=== PATIENT | female | born 1975 | race Caucasian/White ===

== ENCOUNTER 2016-11-18 12:14 | Day surgery (SDCO) | payer OTHER ==
--- NOTE | 2016-11-18 19:55 | NUR ---
DR SINGLETARY MADE AWARE OF PT HEMOGLOBIN OF 11 @ 4:55 RECIEVED ORDERS TO DISCHARGE PT - REVIEWED INFORMATION PT AT THIS TIME STATES UNDERSTANDING - STATED SHE HAD TO CALL HER BROTHER FOR A RIDE TOLD HER TO CALL OUT WHEN HER RIDE WAS HER @ 1947 PT CALLED AND STATED SHE DID NOT HAVE A RIDE AND ASKED IF A CALL COULD BE PLACED TO DR STONER INQUIRING ABOUT STAYING THE NIGHT - DR STONER STATED PT DID NOT MEET INPATIENT CRITERA AND HER FAMILY WAS TOLD THE PT WOULD BE ABLE TO GO BETWEEN 4:30 AND 5 MEDICAL FEE CLERK SPOKE WITH PT AND MADE HER AWARE OF THIS PT COULD EITHER FIND ANOTHER RIDE OR WAIT IN ER WAITING ROOM FOR HER RIDE
== END 2016-11-18 22:29 | disposition home or self-care (01) ==
LOC: FMS 12:14
PROVIDERS: ADMIT Obstetrics & Gynecology
DX: N99.820 Postprocedural hemorrhage of a genitourinary system organ or structure following a genitourinary system procedure (principal); D06.9 Carcinoma in situ of cervix, unspecified; R10.9 Unspecified abdominal pain; N92.1 Excessive and frequent menstruation with irregular cycle; Z98.51 Tubal ligation status; F41.9 Anxiety disorder, unspecified; M19.90 Unspecified osteoarthritis, unspecified site; K44.9 Diaphragmatic hernia without obstruction or gangrene; Z88.5 Allergy status to narcotic agent; Z80.3 Family history of malignant neoplasm of breast; Z80.41 Family history of malignant neoplasm of ovary
CPT/HCPCS: 94010; G0378; J1885

== ENCOUNTER → 2016-11-18 | Day surgery (SDC) | payer OTHER ==
[~2016-11-18] VITALS: Ht 172.7 cm; Wt 120.8 kg
[2016-11-18 07:53] LABS: HCT 40.6 % (37.0-47.0); HGB 13.9 g/dl (12.5-16.0); MCH 30.5 pg (25.0-31.0); MCHC 34.2 g/dL (32.0-36.0); MPV 10.1 fL (6.0-9.5); RBC 4.56 M/uL (4.20-5.40); RDW 13.6 % (11.5-14.0); WBC 7.7 K/uL (4.0-10.5)
[2016-11-18 11:21] LABS: HCT 36.7 % (37.0-47.0); HGB 12.3 g/dl (12.5-16.0); MCH 30.5 pg (25.0-31.0); MCHC 33.5 g/dL (32.0-36.0); MCV 91.1 fL (78.0-100.0); MPV 10.5 fL (6.0-9.5); RBC 4.03 M/uL (4.20-5.40); RDW 13.6 % (11.5-14.0)
[2016-11-18 16:08] LABS: HCT 34.6 % (37.0-47.0); HGB 11.5 g/dl (12.5-16.0); MCH 30.5 pg (25.0-31.0); MCHC 33.2 g/dL (32.0-36.0); MCV 91.8 fL (78.0-100.0); RBC 3.77 M/uL (4.20-5.40); RDW 13.6 % (11.5-14.0)
== END | disposition home or self-care (01) ==
LOC: FAS 07:31
PROVIDERS: Obstetrics & Gynecology
DX: N87.9 Dysplasia of cervix uteri, unspecified (principal); N72 Inflammatory disease of cervix uteri; N88.0 Leukoplakia of cervix uteri; K21.9 Gastro-esophageal reflux disease without esophagitis; F41.9 Anxiety disorder, unspecified; F32.9 Major depressive disorder, single episode, unspecified; B00.9 Herpesviral infection, unspecified; N20.0 Calculus of kidney; K64.4 Residual hemorrhoidal skin tags; N92.1 Excessive and frequent menstruation with irregular cycle; E66.9 Obesity, unspecified; Z68.41 Body mass index [BMI] 40.0-44.9, adult; Z88.5 Allergy status to narcotic agent; Z90.49 Acquired absence of other specified parts of digestive tract; Z98.51 Tubal ligation status; Z82.61 Family history of arthritis; Z82.49 Family history of ischemic heart disease and other diseases of the circulatory system; Z82.3 Family history of stroke; Z80.1 Family history of malignant neoplasm of trachea, bronchus and lung; Z83.3 Family history of diabetes mellitus; Z83.49 Family history of other endocrine, nutritional and metabolic diseases; Z79.899 Other long term (current) drug therapy
CPT/HCPCS: 36415; 84703; 86850; 86900; 86901; 88305; 88307; J1170; J1885; J2405; J2704; J2765; J3010

== ENCOUNTER 2016-11-20 18:28 | Emergency (ER) | payer OTHER ==
[2016-11-20 19:18] LABS: BASOPHIL 0.3 % (0-2); HCT 33.7 % (37.0-47.0); HGB 11.5 g/dl (12.5-16.0); LYMPHOCYTE 17.8 % (15-48); MCH 30.8 pg (25.0-31.0); MCHC 34.1 g/dL (32.0-36.0); MCV 90.3 fL (78.0-100.0); MONOCYTE 8.7 % (0-12); MPV 10.9 fL (6.0-9.5); NEUTROPHIL 71.2 % (41-80); PLT 190 K/uL (150-400); RBC 3.73 M/uL (4.20-5.40); RDW 13.4 % (11.5-14.0); WBC 7.4 K/uL (4.0-10.5)
[2016-11-20 19:22] LABS: INR 1.06 (0.9-1.2); PROTHROMBIN TIME 13.4 SECONDS (11.7-14.0); PTT 28.8 SECONDS (23.2-31.4)
[2016-11-20 19:27] LABS: LACTIC ACID 0.9 mmol/L (0.5-2.2)
[2016-11-20 19:28] LABS: CREATININE 0.7 mg/dL (0.5-1.0); POTASSIUM 3.8 mmol/L (3.5-5.1)
[2016-11-20 19:48] LABS: BILIRUBIN NEGATIVE (NEGATIVE); BLOOD 3+ Ery/uL (NEGATIVE); CLARITY CLEAR (CLEAR); COLOR YELLOW (YELLOW); GLUCOSE (U) NORMAL (NORMAL); KETONE (U) 1+ (SMALL) mg/dL (NEGATIVE); LEUKOCYTES 1+ Leu/uL (NEGATIVE); NITRITE NEGATIVE (NEGATIVE); PROTEIN NEGATIVE (NEGATIVE); SPECIFIC GRAVITY <=1.005 (1.001-1.030); pH 6.5 (5.0-9.0)
[2016-11-20 19:55] LABS: BACTERIA TRACE; MUCOUS TRACE
== END 2016-11-20 20:25 | disposition home or self-care (01) ==
LOC: FER 18:28
PROVIDERS: Emergency Medicine
DX: N39.0 Urinary tract infection, site not specified (principal); J02.9 Acute pharyngitis, unspecified; K21.9 Gastro-esophageal reflux disease without esophagitis; F41.9 Anxiety disorder, unspecified; Z87.19 Personal history of other diseases of the digestive system; Z88.5 Allergy status to narcotic agent; Z90.49 Acquired absence of other specified parts of digestive tract; Z98.890 Other specified postprocedural states
CPT/HCPCS: 36415; 71010; 80048; 81001; 83605; 85025; 85610; 85730; 87040; 87076; 87088; 87186; J1885

== ENCOUNTER 2020-12-05 04:05 | Emergency (ER) | payer OTHER ==
[2020-12-05 04:57] LABS: BASOPHIL 1.1 % (0-2); EOSINOPHIL 5.8 % (0-5); HCT 46.1 % (37.0-47.0); HGB 15.2 g/dl (12.5-16.0); LYMPHOCYTE 42.4 % (15-48); MCH 31.8 pg (25.0-31.0); MCV 96.4 fL (78.0-100.0); MONOCYTE 7.2 % (0-12); MPV 11.2 fL (6.0-9.5); NEUTROPHIL 43.2 % (41-80); NRBC 0; PLT 236 K/uL (150-400); RBC 4.78 M/uL (4.20-5.40); RDW 14.3 % (11.5-14.0)
[2020-12-05 05:52] LABS: MONOSPOT (MONONUCLEOSIS) NEGATIVE (NEGATIVE)
[2020-12-05 06:02] LABS: ALBUMIN 3.5 g/dL (3.4-5.0); ALKALINE PHOSHATASE 78 U/L (46-116); ALT 31 U/L (14-59); AST 22 U/L (15-37); BILIRUBIN - TOTAL 0.5 mg/dL (0.2-1.0); BUN 13 mg/dL (7-18); BUN/CREAT RATIO (CALC) 17.1 RATIO; CHLORIDE 109 mmol/L (98-107); CO2 (BICARBONATE) 24 mmol/L (21-32); CREATININE 0.76 mg/dL (0.51-0.95); GLUCOSE 106 mg/dL (74-106); POTASSIUM 4.2 mmol/L (3.5-5.1); TOTAL PROTEIN 6.5 g/dL (6.4-8.2)
[2020-12-05 06:03] LABS: ACETAMINOPHEN (TYLENOL) < 2.0 ug/mL (10.0-30.0); C-REACTIVE PROTEIN < 0.20 mg/dL (<=0.90)
[2020-12-05] MEDS ORDERED: DIAZEPAM 5MG TAB5 MG PO (07:27)
[2020-12-05] MEDS ORDERED: PREDNISONE 20MG20 MG PO (07:27)
[2020-12-05] MEDS ORDERED: VOLTAREN **OUT50 MG PO (07:27)
== END 2020-12-05 08:09 | disposition home or self-care (01) ==
LOC: FER 04:05
PROVIDERS: Emergency Medicine Emergency Medical Services
DX: M54.5 Low back pain (principal); F32.9 Major depressive disorder, single episode, unspecified; F41.9 Anxiety disorder, unspecified; R07.9 Chest pain, unspecified; R20.0 Anesthesia of skin; R10.84 Generalized abdominal pain; Z88.5 Allergy status to narcotic agent; Z20.822 Contact with and (suspected) exposure to COVID-19
CPT/HCPCS: 36415; 71045; 72050; 72072; 72110; 80053; 84484; 85025; 86140; 86308; 93005; G0480; J1100; J1885; J2800; J7050; U0002